=== PATIENT | male | born 1970 | race Caucasian/White ===

== ENCOUNTER 2024-05-12 22:50 | Emergency (ER) | payer OTHER, SELFPAY ==
[2024-05-12 22:53] VITALS: BP 116/68; BMI 36.2
[2024-05-12 22:56] VITALS: BP 118/74
--- NOTE | 2024-05-12 23:00 | EDRN ---
The patient was asked what H he had the patient answered 'I don't know right now.' The patient would not answer most questions. The patient was complaining that the food is not good in [facility].
[2024-05-12 23:09] LABS: % Basophils 0.5 % (0-2); % Immature Granulocytes 0.2 % (0-0.5); % Lymphocytes 15.5 % (20.5-51.1); % Monocytes 9.2 % (1.7-9.3); % Neutrophils 73.6 % (42.2-75.2); Absolute Eosinophils 0.1 10^3/uL (0-0.7); Absolute Lymphocytes 1.3 10^3/uL (1.2-3.4); Absolute Monocytes 0.8 10^3/uL (0.1-0.6); Hematocrit 35.6 % (39.0-52.0); Hemoglobin 12.5 g/dL (13.0-18.0); Mean Corp Hgb Conc. 35.1 g/dL (33.0-37.0); Mean Corpuscular Hgb 29.8 pg (27.0-31.0); Mean Corpuscular Volume 84.8 fL (80.0-94.0); Mean Platelet Volume 11.5 fL (7.4-10.4); Nucleated Red Blood Cells % 0 % (-); Platelet Count 199 10^3/uL (130-400); Red Cell Dist. Width 13.2 % (11.5-14.5); White Blood Cell Count 8.2 10^3/uL (4.8-10.8)
[2024-05-12 23:41] LABS: ALT (SGPT) 42 U/L (0-50); AST (SGOT) 44 U/L (17-59); Albumin 4.2 g/dl (3.5-5.0); Alkaline Phosphatase 74 U/L (38-126); Blood Urea Nitrogen 21 mg/dl (9-20); Calcium 9.6 mg/dl (8.4-10.2); Carbon Dioxide 24 mmol/L (22-30); Chloride 107 mmol/L (98-107); Estimated Creatinine Clearance > 125 ml/min; Glucose 110 mg/dl (70-99); Potassium 3.8 mmol/L (3.5-5.1); Sodium 141 mmol/L (135-145); Total Bilirubin 0.9 mg/dl (0.2-1.3); Total Protein 6.6 g/dl (6.3-8.2); eGFR > 60.00
[2024-05-13] VITALS: BP 111/66
[2024-05-13 01:00] VITALS: BP 100/57
--- NOTE | 2024-05-13 01:13 | ED.GENMED ---
History of Present Illness
General
Chief Complaint: Weight Changes
Source: patient and other (Present guards and limited records from [facility]
Exam Limitations: other (Patient with history of schizophrenia, marginally cooperative with history. He is however cooperative with exam.)
Time Seen by Provider: 05/13/24 00:55
Nursing documentation reviewed up to this point in time: agreed with
History of Present Illness
History of Present Illness:
This is a 53-year-old gentleman who has history of schizophrenia, hypothyroidism, hypertension, hyperlipidemia who [facility] at [facility] since April 18. He is
currently residing in a mental health unit at the shelter and has been poorly cooperative with taking medications, oftentimes refusing his medicines which include olanzapine, Seroquel, Synthroid, lisinopril.
He has also been refusing some of his meals, has had decreased oral intake stating that he does not like the food at the shelter.
He is sent to the ED for evaluation of a 20 pound unintentional weight loss.
He denies pain, he has had no episodes of nausea nor vomiting, denies diarrhea nor constipation.
Unclear if he has ever undergone colon cancer screening.
According to shelter guards, patient's weight upon presentation to the shelter was recorded at 280 pounds. Currently 258 pounds.
Past History
Past History
ED Past Medical History: HTN, Hypercholesterolemia, Hypothyroidism and Psychiatric (Schizophrenia)
Social History
Living: shelter
Employment: Not employed ([facility])
Family History
Family History: Other (Unobtainable)
Phy Exam
Physical Exam
Physical Exam:
GENERAL: 53-year-old obese gentleman appears somewhat older than stated age. Sound asleep upon entering exam room, awakens with verbal and tactile stimuli. Initially upon waking he is briefly agitated but easily calmed and has remained
cooperative. Appears in no acute distress. Appears euvolemic. He falls back to sleep when undisturbed.
EYE: pupils equal and reactive. anicteric. Mild blepharitis bilateral eyes.
NECK: Supple, nontender, no meningismus, no significant adenopathy.
ENT: posterior pharynx is clear, oral mucosa is moist. No rhinorrhea.
CARDIAC: Regular rate and rhythm. no murmur.
LUNGS: Clear breath sounds bilaterally, no acute respiratory distress, no wheezes/rales/rhonchi
ABDOMEN: Rotund, soft, nondistended, without focal tenderness, no palpable masses. Normoactive BS.
NEUROLOGICAL: Alert and oriented x3, no focal neuro deficits.
SKIN: Warm and dry, normal color, skin intact. No rash.
MUSCULOSKELETAL: No clubbing or cyanosis. Trace nonpitting edema bilateral lower legs/feet. Peripheral pulses are full and equal b/l. No palpable tenderness.
PSYCH: Briefly agitated upon waking. Speech is intermittently mumbling with flight of ideas and scattered thought processes.
Scores
Heart Failure Risk
Heart Failure Risk Score: Not Applicable
Course
Orders/Labs/Results
Orders:
Orders
05/12/24 23:04
CMP [Comprehensive Metabolic Panel] Urgent
Complete Blood Count/With Diff Urgent
TSH Reflex To Free T4 Urgent
Comment: ADD ON
05/13/24 01:02
Add On- LAB Urgent
Tests Added?: TSH with reflex to T-4
Abnormal Lab Results
05/12/24
23:04
RBC 4.20 L 10^6/uL
(4.70-6.10)
Hgb 12.5 L g/dL
(13.0-18.0)
Hct 35.6 L %
(39.0-52.0)
MPV 11.5 H fL
(7.4-10.4)
Absolute Monos (auto) 0.8 H 10^3/uL
(0.1-0.6)
Lymphocytes % 15.5 L %
(20.5-51.1)
BUN 21 H mg/dl
(9-20)
Creatinine 0.6 L mg/dL
(0.7-1.3)
Glucose 110 H mg/dl
(70-99)
05/12/24 23:04
05/12/24 23:04
Vital Signs
Initial and Last Documented VS:
Initial Vital Signs
Temp Pulse Resp BP Pulse Ox
98.2 F 80 18 116/68 98
05/12/24 22:53 05/12/24 22:53 05/12/24 22:53 05/12/24 22:53 05/12/24 22:53
Last Documented Vital Signs
Temp Pulse Resp BP Pulse Ox
98.2 F 80 18 116/68 98
05/12/24 22:53 05/12/24 22:53 05/12/24 22:53 05/12/24 22:53 05/12/24 22:53
MDM/Problems Addressed
Differential Diagnosis Includes:
Patient presents from [facility] for evaluation of 20 pound unintentional weight loss over the past month.
He does admit that he does not enjoy the food and has been eating less over the past month which is likely cause for his weight loss.
Other consideration is occult malignancy however reassuring that he has had no pain, no change in bowel habits, no nausea nor vomiting.
As he has been sporadically refusing medications, hyperthyroidism is less likely. He may have an element of hypothyroidism as he is maintained on Synthroid. However hypothyroidism generally does not lend to weight loss.
Clinically appears euvolemic and is hemodynamically stable.
Labs thus far reveal very mild anemia with normal indices, unremarkable white blood cell count, normal platelet count. Unremarkable chemistries including normal alkaline phosphatase, LFTs.
TSH is pending.
At this point no indication for imaging but would encourage patient to consume his meals.
Could consider colon cancer screening on an outpatient basis.
Will discharge back to the shelter for continued care.
Chronic conditions affecting care: HTN, Psychiatric illness and Other (Hypothyroidism)
*Pulse Oximetry
Patient hypoxic: no
*Critical Care Note
Total Time (30-74mins, 75-104mins- exclusive of procedures): Not Applicable
ED Attending Note
-
Portions of this chart may have been created with voice recognition software.� Occasional wrong word or��sound alike� substitutions may have occurred due to the inherent limitations of voice recognition software.
Discharge Plan
Departure
Patient Disposition: Long Term
Date of Disposition: 05/13/24
Time of Disposition: 01:13
Patient with high blood pressure during this ER visit?: No
Condition: Good
Discharge Problem:
Unintentional weight loss of more than 5% body weight within 1 month
Instructions: Diet and health
Prescriptions:
No Action
Unobtainable
0
Referrals:
[facility] [Family Provider] -
Activity Restrictions/Additional Instructions:
I suspect weight loss is due to decreased oral intake, patient admits that he does not like the food that is provided.
Labs show very mild anemia otherwise unremarkable, reassuring. He is not dehydrated.
Thyroid functions are pending.
Due to mild anemia, unintentional weight loss, recommend colon cancer screening if this has not been completed within the recent past.
Interventions
Interventions:
*Risk Screen - Suicide Last Done: 05/12/24 22:53
*General Assessment Last Done: 05/12/24 22:53
*Neglect/Abuse Screening Last Done: 05/12/24 22:53
ED- Fall Risk Assessment Last Done: 05/12/24 22:53
*ED COVID-19 Vaccine History Last Done: 05/12/24 22:53
Discharge Date and Time
Print Language: [place]
[2024-05-13 03:27] LABS: TSH Reflex To Free T4 1.81 uIU/ml (0.47-4.68)
== END 2024-05-13 01:25 ==
LOC: EMR 22:50
PROVIDERS: EMERGENCY PHYSICIAN Emergency Medicine
DX: R63.4 Abnormal weight loss (principal); F20.9 Schizophrenia, unspecified; E03.9 Hypothyroidism, unspecified; I10 Essential (primary) hypertension; E78.00 Pure hypercholesterolemia, unspecified
CPT/HCPCS: 99283; 80053; 84443; 85025

== ENCOUNTER 2024-05-22 15:01 | Emergency (ER) | payer OTHER, SELFPAY ==
[2024-05-22 15:02] VITALS: BP 112/89
[2024-05-22 15:34] VITALS: BP 126/76
--- NOTE | 2024-05-22 16:04 | ED.GENMED ---
History of Present Illness
General
Chief Complaint: Head Injury
Source: patient
Exam Limitations: none
Time Seen by Provider: 05/22/24 15:13
Nursing documentation reviewed up to this point in time: agreed with
History of Present Illness
History of Present Illness:
Patient presents to ED from [facility], after witnessed fall from his bed onto the floor, landing on his head. Patient was admitted attended to by present personnel. Patient presents to ED in c-collar in
somnolent state, which per facility, at times can be his baseline mental status. Per infirmary, patient has had extreme somnolence state to violent state episodically. Unable to obtain any further information at this time.
Past History
Past History
ED Past Medical History: HTN, Hypercholesterolemia, Hypothyroidism and Psychiatric (Schizophrenia)
Social History
Living: skilled nursing
Employment: Not employed (Follows with the [facility])
Family History
Family History: Other (Unobtainable)
Review of Systems
Review of Systems
Allergies reviewed?: Yes
Unable to obtain full review of systems at this time due to: non-verbal
All Other Systems: Not applicable
Phy Exam
Physical Exam
Physical Exam:
Physical Exam
General: no apparent distress, not acutely ill. afebrile.
Head: superficial abrasion and erythema noted over frontal scalp without bleeding/swelling. perrla
Neck: supple.
Heart: s1/s2 regular rate and rhythm, no murmur. equal radial pulses.
Lungs: no acute respiratory distress. clear bilaterally. chest wall nontender.
Abdomen: normal bowel sounds. not tender.
Neuro: sleeping but moving extremities spontaneously.
Skin: no rash.
Extremities: LE b/l edema.
Course
Orders/Labs/Results
Orders:
Orders
05/22/24 15:09
CT Head W/o Iv Contrast Urgent
Comment:
Reason For Exam: Head injury
05/22/24 15:10
CT Cervical Spine W/o Iv Contr Urgent
Comment:
Reason For Exam: head injury
Vital Signs
Initial and Last Documented VS:
Initial Vital Signs
Temp Pulse Resp BP Pulse Ox
97.6 F 85 16 112/89 97
05/22/24 15:02 05/22/24 15:02 05/22/24 15:02 05/22/24 15:02 05/22/24 15:02
Last Documented Vital Signs
Temp Pulse Resp BP Pulse Ox
97.6 F 95 16 126/76 96
05/22/24 15:02 05/22/24 16:26 05/22/24 16:26 05/22/24 15:34 05/22/24 16:26
MDM/Problems Addressed
MDM/Problems Addressed:
CT head/c-spine: no acute findings
Patient during observation, noted to become awake and muttering to himself, with spontaneous extremity movements. This appears to be his baseline mental status, according to personnel at [facility]. As such, patient will be
discharged back at this time, for continual evaluation and treatment. No further workup necessary at this time.
*Critical Care Note
Total Time (30-74mins, 75-104mins- exclusive of procedures): Not Applicable
ED Attending Note
-
Portions of this chart may have been created with voice recognition software.� Occasional wrong word or��sound alike� substitutions may have occurred due to the inherent limitations of voice recognition software.
Discharge Plan
Departure
Patient Disposition: Fdc
Date of Disposition: 05/22/24
Time of Disposition: 16:30
Patient with high blood pressure during this ER visit?: Yes
Discharge Problem:
Head injury
Instructions: Head Injury in Adults (DC)
Prescriptions:
No Action
Unobtainable
0
Referrals:
NONE,* [Family Provider] -
Activity Restrictions/Additional Instructions:
As discussed, you are being discharged back to [facility] for continual evaluation and treatment.
Interventions
Interventions:
*Risk Screen - Suicide Last Done: 05/22/24 15:02
*General Assessment Last Done: 05/22/24 15:35
*Neglect/Abuse Screening Last Done: 05/22/24 15:02
*Nursing Disposition Last Done: 05/22/24 16:42
ED- Neurological Assessment Last Done: 05/22/24 15:13
ED-Skin Assessment Last Done: 05/22/24 15:13
Discharge Date and Time
Discharge Date/Time: 05/22/24 16:42
Print Language: [place]IZ[place]
== END 2024-05-22 16:42 ==
LOC: EMR 15:01
PROVIDERS: EMERGENCY PHYSICIAN Emergency Medicine
DX: S09.90XA Unspecified injury of head, initial encounter (principal); W06.XXXA Fall from bed, initial encounter
CPT/HCPCS: 99284; 70450; 72125

== ENCOUNTER 2024-05-31 13:34 | Emergency (ER) | payer OTHER, SELFPAY ==
[2024-05-31 13:41] VITALS: BP 145/77
--- NOTE | 2024-05-31 14:43 | ED.GENMED ---
History of Present Illness
General
Chief Complaint: Change in Mental Status
Source: patient
Exam Limitations: none
Time Seen by Provider: 05/31/24 13:45
History of Present Illness
History of Present Illness:
53-year-old male presents from facility with apparent change in mental status. He has schizophrenia history. He stays in the mental health [facility] at present. [facility] change in mental status however the patient states that
he feels that he has scarlet fever. He states he felt warm last night and he has had scarlet fever before. When asked several minutes later what brought him to the hospital, he states that it was his feet that brought him to the hospital. Patient
is a poor historian. He is denying chest pain. No other complaints at this time
Past History
Past History
ED Past Medical History: HTN, Hypercholesterolemia, Hypothyroidism and Psychiatric (Schizophrenia)
Social History
Living: longterm
Employment: Not employed (Follows with the [employer])
Family History
Family History: Other (Unobtainable)
Phy Exam
Physical Exam
Physical Exam:
General: Well appearing male NAD
HEENT: NC/AT
Heart: RRR, no murmurs
Lungs: CTA bilaterally
Abd: Soft, nontedner, nondistended
Ext: Pitting edema bilateral lower extremities with mild overlying erythema bilaterally
Neurologic exam: Alert responds to verbal stimuli. Answers questions.
Course
Orders/Labs/Results
Orders:
Orders
05/31/24 15:22
Complete Blood Count/With Diff Urgent
Comprehensive Metabolic Panel Urgent
NT-proBNP Urgent
05/31/24 18:40
Urinalysis Reflex To Culture Urgent
Date Specimen was Collected: 05/31/24
Time Specimen was Collected: 16:30
Abnormal Lab Results
05/31/24 05/31/24
15:22 18:40
RBC 3.75 L 10^6/uL
(4.70-6.10)
Hgb 11.4 L g/dL
(13.0-18.0)
Hct 33.4 L %
(39.0-52.0)
MPV 10.6 H fL
(7.4-10.4)
Absolute Lymphs (auto) 1.1 L 10^3/uL
(1.2-3.4)
Lymphocytes % 15.4 L %
(20.5-51.1)
BUN 26 H mg/dl
(9-20)
Creatinine 0.6 L mg/dL
(0.7-1.3)
Glucose 107 H mg/dl
(70-99)
Total Protein 6.2 L g/dl
(6.3-8.2)
Urine Ketones 3+ A
(Negative)
Urine Bilirubin 1+ A
(Negative)
05/31/24 15:22
05/31/24 15:22
Vital Signs
Initial and Last Documented VS:
Initial Vital Signs
Temp Pulse Resp BP Pulse Ox
98.2 F 74 16 145/77 95
05/31/24 13:41 05/31/24 13:41 05/31/24 13:41 05/31/24 13:41 05/31/24 13:41
Last Documented Vital Signs
Temp Pulse Resp BP Pulse Ox
98.2 F 74 16 145/77 95
05/31/24 13:41 05/31/24 13:41 05/31/24 13:41 05/31/24 13:41 05/31/24 13:41
MDM/Problems Addressed
Differential Diagnosis Includes:
Patient brought in for lead to change in mental status. Patient is alert does not seem confused at this time. He does have history of schizophrenia which makes today's history difficult. Patient was unclear of what really brought him here to the
hospital. Legs do look edematous. Will check basic labs.
*Critical Care Note
Total Time (30-74mins, 75-104mins- exclusive of procedures): Not Applicable
Update Note
Update Note:
Workup here essentially negative. There is no evidence of altered mental status on our exam here. I spoke with the infirmary at the longterm. They are concerned about potential UTI as he has changed from his baseline. Urinalysis was obtained and
there is no sign of UTI. No indication for admission to hospital will discharge back to longterm.
ED Attending Note
-
Portions of this chart may have been created with voice recognition software.� Occasional wrong word or��sound alike� substitutions may have occurred due to the inherent limitations of voice recognition software.
Discharge Plan
Departure
Patient Disposition: Senior Care
Date of Disposition: 05/31/24
Time of Disposition: 19:24
Patient with high blood pressure during this ER visit?: No
Discharge Problem:
Fatigue
Prescriptions:
No Action
Unobtainable
0
Referrals:
[facility] [Family Provider] -
Activity Restrictions/Additional Instructions:
Please return here if needed
Interventions
Interventions:
*Risk Screen - Suicide Last Done: 05/31/24 13:41
*General Assessment Last Done: 05/31/24 13:41
*Neglect/Abuse Screening Last Done: 05/31/24 13:41
ED- Fall Risk Assessment Last Done: 05/31/24 16:57
ED- Pulmonary Assessment Last Done: 05/31/24 16:57
ED- Neurological Assessment Last Done: 05/31/24 16:57
Discharge Date and Time
Print Language: [place]
[2024-05-31 15:33] LABS: % Basophils 0.4 % (0-2); % Eosinophils 0.8 % (0-6); % Immature Granulocytes 0.3 % (0-0.5); % Lymphocytes 15.4 % (20.5-51.1); % Monocytes 8.7 % (1.7-9.3); % Neutrophils 74.4 % (42.2-75.2); Absolute Eosinophils 0.1 10^3/uL (0-0.7); Absolute Lymphocytes 1.1 10^3/uL (1.2-3.4); Absolute Monocytes 0.6 10^3/uL (0.1-0.6); Absolute Neutrophils 5.4 10^3/uL (1.4-6.5); Hematocrit 33.4 % (39.0-52.0); Hemoglobin 11.4 g/dL (13.0-18.0); Mean Corp Hgb Conc. 34.1 g/dL (33.0-37.0); Mean Corpuscular Hgb 30.4 pg (27.0-31.0); Mean Corpuscular Volume 89.1 fL (80.0-94.0); Mean Platelet Volume 10.6 fL (7.4-10.4); Nucleated Red Blood Cells % 0 % (-); Platelet Count 230 10^3/uL (130-400); Red Blood Cell Count 3.75 10^6/uL (4.70-6.10); Red Cell Dist. Width 13.5 % (11.5-14.5); White Blood Cell Count 7.3 10^3/uL (4.8-10.8)
[2024-05-31 15:45] LABS: ALT (SGPT) 49 U/L (0-50); AST (SGOT) 59 U/L (17-59); Albumin 3.7 g/dl (3.5-5.0); Alkaline Phosphatase 73 U/L (38-126); Blood Urea Nitrogen 26 mg/dl (9-20); Calcium 9.1 mg/dl (8.4-10.2); Carbon Dioxide 26 mmol/L (22-30); Chloride 105 mmol/L (98-107); Glucose 107 mg/dl (70-99); Potassium 3.9 mmol/L (3.5-5.1); Sodium 139 mmol/L (135-145); Total Bilirubin 0.7 mg/dl (0.2-1.3); Total Protein 6.2 g/dl (6.3-8.2); eGFR > 60.00
[2024-05-31 15:51] LABS: NT-proBNP 84.1 pg/ml
[2024-05-31 18:50] LABS: Urine Albumin Negative (Neg - Trace); Urine Bilirubin 1+ (Negative); Urine Character Clear (Clear); Urine Color Yellow; Urine Glucose Negative (Negative); Urine Ketone 3+ (Negative); Urine Leukocyte Negative (Negative); Urine Nitrite Negative (Negative); Urine Occult Blood Negative (Negative); Urine Urobilinogen Negative (Neg - 1+)
== END 2024-05-31 20:00 ==
LOC: EMR 13:34
PROVIDERS: Physician Assistant; EMERGENCY PHYSICIAN Student in an Organized Health Care Education/Training Program
DX: R53.83 Other fatigue (principal); R41.82 Altered mental status, unspecified; R60.0 Localized edema; F20.9 Schizophrenia, unspecified; I10 Essential (primary) hypertension; E78.00 Pure hypercholesterolemia, unspecified; E03.9 Hypothyroidism, unspecified
CPT/HCPCS: 99283; 80053; 81003; 83880; 85025

== ENCOUNTER 2024-06-03 09:12 | Emergency (ER) | payer OTHER, SELFPAY ==
[2024-06-03 09:16] VITALS: BP 126/87
[2024-06-03 09:21] VITALS: BP 126/87
--- NOTE | 2024-06-03 09:43 | ED.GENMED ---
History of Present Illness
General
Chief Complaint: Change in Mental Status
Source: other (Documents from the residential and residential guards)
Time Seen by Provider: 06/03/24 09:14
History of Present Illness
History of Present Illness:
53-year-old male sent to the emergency room from [facility] because he continues to act in a bizarre fashion. Patient does have a history of schizophrenia. He has been refusing meds at times. He was drinking his urine today and consumed
some of his own feces. Staff also noted increasing lower extremity swelling and redness. Patient unable to provide any significant history.
Past History
Past History
ED Past Medical History: HTN, Hypercholesterolemia, Hypothyroidism and Psychiatric (Schizophrenia)
Social History
Living: residential
Employment: Not employed ([facility])
Family History
Family History: Other (Unobtainable)
Phy Exam
Physical Exam
Physical Exam:
General: Awake, Alert, Oriented to person. Bizarre affect
Vitals: unremarkable
Head: Atraumatic
Eyes: Pupils equal, EOMI
Throat: Airway intact, no exudates, dry mucosa
Neck: Trachea midline
Lungs: Clear and equal b/l
Heart: Regular rate, no murmurs
Abd: Soft, Nontender, No pulsatile mass
Neuro: Nonfocal
Skin: Warm, dry, no rash
Extremities: pulses equal b/l, 2+ edema, lower extremities erythematous bilaterally from the mid saucedo down to the feet
Course
Orders/Labs/Results
Orders:
Orders
06/03/24 09:40
CT Head W/o Iv Contrast Urgent
Comment:
Reason For Exam: altered mental status
06/03/24 09:48
Complete Blood Count/With Diff Urgent
Comprehensive Metabolic Panel Urgent
Magnesium Urgent
Phos [Phosphorus] Urgent
TSH Reflex To Free T4 Urgent
06/03/24 12:29
CeFAZolin 2 GRAM [Ancef] 2 grams in 10 ml IV NOW
Abnormal Lab Results
06/03/24
09:48
WBC 4.2 L 10^3/uL
(4.8-10.8)
RBC 3.85 L 10^6/uL
(4.70-6.10)
Hgb 11.6 L g/dL
(13.0-18.0)
Hct 33.3 L %
(39.0-52.0)
MPV 11.0 H fL
(7.4-10.4)
Absolute Lymphs (auto) 1.1 L 10^3/uL
(1.2-3.4)
Monocytes % 11.7 H %
(1.7-9.3)
Creatinine 0.6 L mg/dL
(0.7-1.3)
Glucose 101 H mg/dl
(70-99)
Total Protein 6.0 L g/dl
(6.3-8.2)
06/03/24 09:48
06/03/24 09:48
Vital Signs
Initial and Last Documented VS:
Initial Vital Signs
Temp Pulse Resp BP Pulse Ox
97.7 F 75 16 126/87 98
06/03/24 09:16 06/03/24 09:16 06/03/24 09:16 06/03/24 09:16 06/03/24 09:16
Last Documented Vital Signs
Temp Pulse Resp BP Pulse Ox
97.7 F 70 16 120/76 98
06/03/24 09:16 06/03/24 13:01 06/03/24 13:01 06/03/24 13:01 06/03/24 13:01
MDM/Problems Addressed
Differential Diagnosis Includes:
Hemorrhagic or ischemic event because of altered mental status, hyponatremia, renal failure, progression or exacerbation of schizophrenia
MDM/Problems Addressed:
Patient acts bizarrely but he does not appear to be acutely ill. Labs are unrevealing. Head CT shows no acute abnormality. Patient refuses to provide urine. He did have urinalysis performed here for similar symptoms just 3 days ago. I do not
believe it is necessary to catheterize the patient for a urine given that. The patient's bizarre behavior is most likely due to his psychiatric disorder. I do not see any benefit to a medical hospitalization. Psychiatrist at the present should
potentially adjust his medications.
*Radiology
Radiology exam reviewed: radiology read reviewed
*Pulse Oximetry
Patient hypoxic: no
*Critical Care Note
Total Time (30-74mins, 75-104mins- exclusive of procedures): Not Applicable
ED Attending Note
-
Portions of this chart may have been created with voice recognition software.� Occasional wrong word or��sound alike� substitutions may have occurred due to the inherent limitations of voice recognition software.
Discharge Plan
Departure
Patient Disposition: Detention
Date of Disposition: 06/03/24
Time of Disposition: 12:27
Condition: Fair
Discharge Problem:
Cellulitis and abscess of lower extremity, Schizophrenia
Instructions: Cellulitis (Skin Infection), Adult ED
Prescriptions:
New
cephalexin 500 mg capsule
500 mg PO Q6H 7 Days Qty: 28 0RF
Referrals:
[facility] [Family Provider] -
Activity Restrictions/Additional Instructions:
The patient's lab work here is essentially normal. He refused to give us urine. Head CT was performed which shows no acute abnormality. The patient's bizarre behavior is likely related to his psychiatric disorder rather than an acute medical
illness. We will prescribe Keflex for lower extremity erythema which may be cellulitis or may be related to venous stasis. Patient was given the first dose there is IV here.
Interventions
Interventions:
*Risk Screen - Suicide Last Done: 06/03/24 09:54
*General Assessment Last Done: 06/03/24 09:54
*Neglect/Abuse Screening Last Done: 06/03/24 09:54
ED- Fall Risk Assessment Last Done: 06/03/24 13:01
*ED COVID-19 Vaccine History Last Done: 06/03/24 09:54
*Nursing Disposition Last Done: 06/03/24 13:01
ED- Pulmonary Assessment Last Done: 06/03/24 13:01
ED-Psychological Assessment Last Done: 06/03/24 13:01
ED- Neurological Assessment Last Done: 06/03/24 09:54
ED- Cardiac Assessment Last Done: 06/03/24 13:01
Discharge Date and Time
Discharge Date/Time: 06/03/24 13:16
Print Language: [place]INC[place]
[2024-06-03 09:55] LABS: % Basophils 0.5 % (0-2); % Eosinophils 2.4 % (0-6); % Immature Granulocytes 0.2 % (0-0.5); % Lymphocytes 25.3 % (20.5-51.1); % Monocytes 11.7 % (1.7-9.3); % Neutrophils 59.9 % (42.2-75.2); Absolute Eosinophils 0.1 10^3/uL (0-0.7); Absolute Lymphocytes 1.1 10^3/uL (1.2-3.4); Absolute Monocytes 0.5 10^3/uL (0.1-0.6); Absolute Neutrophils 2.5 10^3/uL (1.4-6.5); Hematocrit 33.3 % (39.0-52.0); Hemoglobin 11.6 g/dL (13.0-18.0); Mean Corp Hgb Conc. 34.8 g/dL (33.0-37.0); Mean Corpuscular Hgb 30.1 pg (27.0-31.0); Mean Corpuscular Volume 86.5 fL (80.0-94.0); Nucleated Red Blood Cells % 0 % (-); Platelet Count 216 10^3/uL (130-400); Red Blood Cell Count 3.85 10^6/uL (4.70-6.10); Red Cell Dist. Width 13.8 % (11.5-14.5); White Blood Cell Count 4.2 10^3/uL (4.8-10.8)
[2024-06-03 10:08] LABS: ALT (SGPT) 49 U/L (0-50); AST (SGOT) 49 U/L (17-59); Albumin 3.6 g/dl (3.5-5.0); Alkaline Phosphatase 61 U/L (38-126); Blood Urea Nitrogen 14 mg/dl (9-20); Calcium 9.6 mg/dl (8.4-10.2); Carbon Dioxide 28 mmol/L (22-30); Chloride 103 mmol/L (98-107); Glucose 101 mg/dl (70-99); Potassium 3.8 mmol/L (3.5-5.1); Sodium 136 mmol/L (135-145); Total Bilirubin 0.6 mg/dl (0.2-1.3); eGFR > 60.00
[2024-06-03 10:47] LABS: TSH Reflex To Free T4 2.08 uIU/ml (0.47-4.68)
[2024-06-03] MEDS: ANCEF 10 IV (12:35)
[2024-06-03 13:01] VITALS: BP 120/76
== END 2024-06-03 13:16 ==
LOC: EMR 09:12
PROVIDERS: EMERGENCY PHYSICIAN Emergency Medicine
DX: L02.419 Cutaneous abscess of limb, unspecified (principal); F20.9 Schizophrenia, unspecified; E03.9 Hypothyroidism, unspecified; E78.00 Pure hypercholesterolemia, unspecified; I10 Essential (primary) hypertension
CPT/HCPCS: 99284; 96374; 70450; 80053; 83735; 84100; 84443; 85025